=== PATIENT | female | born 1990 | race African-American/Black ===

== ENCOUNTER → 2018-01-13 | Outpatient (CLI) | payer OTHER | LOC: LAB 11:56 | PROVIDERS: ATTEND Obstetrics & Gynecology | DX: Z11.3 Encounter for screening for infections with a predominantly sexual mode of transmission (principal); N89.8 Other specified noninflammatory disorders of vagina | CPT/HCPCS: 36415; 86592; 86703; 86803; 87210; 87340; 87491; 87591 ==

== ENCOUNTER 2018-03-03 07:15 | Emergency (ER) | payer SELFPAY ==
[2018-03-03] MEDS ORDERED: NS(*) 0.9% 1000 ML BAG 1,000 ML IV ONE ×2 (07:26)
[2018-03-03] MEDS ORDERED: ONDANSETRON 4 MG/2 ML VIAL IVP ONE (07:30)
--- NOTE | 2018-03-03 07:38 | ER Report ---
History and Physical Time Seen By MD: 07:25 Hx. of Stated Complaint: DIARRHEA FOR A WEEK, VOMITING STARTED YESTERDAY. WORK REQUESTED SHE SEE A DOCTOR HPI/ROS CHIEF COMPLAINT: 27-year-old female comes with a complaint of one to one and half days of nausea vomiting and diarrhea mild right-sided abdominal discomfort patient denies any chest pain shortness of breath fever chills or additional complaints noted no recent travel or sick contacts no diarrhea changes HISTORY OF PRESENT ILLNESS: must have 4 elements REVIEW OF SYSTEMS: Respiratory: No cough, no dyspnea. Cardiovascular: No chest pain, no palpitations. Gastrointestinal: Vomiting diarrhea no abdominal pain Musculoskeletal: No back pain. Remainder of the 14 system rev: Yes Allergies: Coded Allergies: sulfamethoxazole (Unverified Allergy, Unknown, UNKNOWN, 03/03/18) trimethoprim (Unverified Allergy, Unknown, UNKNOWN, 03/03/18) Home Meds No Active Prescriptions or Reported Meds Reviewed Nurses Notes: Yes Old Medical Records Reviewed: Yes Smoking Status: Current: Every Day Smoker Exposure to Second Hand Smoke?: No Constitutional Vital Sign - Last 24 Hours 03/03/18 03/03/18 03/03/18 03/03/18 07:20 07:22 07:30 07:45 Temp 98.4 Pulse 72 66 60 Resp 16 B/P (MAP) 116/70 116/70 (85) 113/75 (88) 112/69 (83) Pulse Ox 100 96 97 O2 Delivery Room Air 03/03/18 03/03/18 03/03/18 03/03/18 07:50 08:00 08:05 08:20 Pulse 57 55 55 B/P (MAP) 103/58 (73) Pulse Ox 95 96 91 03/03/18 03/03/18 03/03/18 03/03/18 08:30 08:35 08:50 09:00 Pulse 52 51 B/P (MAP) 108/38 (61) ???/??? (4515) Pulse Ox 95 95 03/03/18 03/03/18 03/03/18 03/03/18 09:05 09:20 09:35 09:40 Pulse 56 61 57 52 Pulse Ox 95 95 98 91 03/03/18 03/03/18 03/03/18 03/03/18 09:55 10:00 10:05 10:20 Pulse 48 52 78 B/P (MAP) ???/??? (1665) Pulse Ox 97 89 95 03/03/18 03/03/18 03/03/18 03/03/18 10:30 10:35 10:50 11:30 Pulse 72 ??? B/P (MAP) ???/??? (1665) ???/??? (1665) Pulse Ox 88 03/03/18 03/03/18 03/03/18 03/03/18 11:50 11:55 12:00 12:05 Pulse ? 59 62 B/P (MAP) 129/46 (73) Pulse Ox 93 95 03/03/18 03/03/18 03/03/18 03/03/18 12:10 12:20 12:25 12:30 Pulse 56 61 66 71 B/P (MAP) 97/62 (74) 99/62 (74) 92/83 (86) Pulse Ox 95 95 94 96 03/03/18 03/03/18 03/03/18 12:35 12:40 12:45 Pulse 88 65 65 B/P (MAP) 100/65 (77) 102/61 (75) 101/64 (76) Pulse Ox 93 95 91 Intake and Output 03/03/18 03/03/18 03/04/18 15:00 23:00 07:00 Intake Total 2000 ml Balance 2000 ml Physical Exam General Appearance: The patient is alert, has no immediate need for airway protection and no current signs of toxicity. [ ] Eyes: Pupils equal and round no injection. Respiratory: Chest is non tender, lungs are clear to auscultation. Cardiac: regular rate and rhythm [ ] Gastrointestinal: Mild tenderness in the right upper quadrant otherwise unremarkable no rebound guarding masses normal bowel sounds Musculoskeletal: Neck: Neck is supple and non tender. Extremities have full range of motion and are non tender. Skin: No rashes or lesions. [ ] DIFFERENTIAL DIAGNOSIS: After history and physical exam differential diagnosis was considered for gallbladder cholecystitis cholangitis acute cholecystitis and gastroenteritis enteritis UTI Medical Decision Making Data Points Result Diagram: 03/03/18 0845 03/03/18 0735 Laboratory Hematology Test 03/03/18 07:20 03/03/18 07:35 03/03/18 08:45 Urine Color Yellow Urine Clarity Clear Urine pH 5.0 pH (4.8-9.5) Urine Specific [place] 1.014 Urine Protein Negative mg/dL (NEGATIVE) Urine Glucose (UA) Negative mg/dL (NEGATIVE) Urine Ketones Negative mg/dL (NEGATIVE) Urine Blood Negative (NEGATIVE) Urine Nitrite Negative (NEGATIVE) Urine Bilirubin Negative (NEGATIVE) Urine Urobilinogen Negative mg/dL (0.2-1.9) Urine Leukocyte Esterase Small (NEGATIVE) Urine RBC 2 /HPF (0-2/HPF) Urine WBC 3 /HPF (0-5/HPF) Urine Squamous Epithelial Cells Many /LPF (</=FEW) Urine Bacteria Negative /HPF (NONE-FEW) Urine Mucus None /HPF (NONE-FEW) Urine HCG, Qualitative Negative (NEGATIVE) Sodium Level 137 mmol/L (137-145) Potassium Level 4.1 mmol/L (3.5-5.0) Chloride Level 104 mmol/L (98-107) Carbon Dioxide Level 25 mmol/L (22-31) Blood Urea Nitrogen 10 mg/dl (7-18) Creatinine 0.80 mg/dl (0.52-1.04) Glomerular Filtration Rate Calc > 60.0 Random Glucose 99 mg/dl (75-110) Calcium Level 8.8 mg/dl (8.4-10.2) Total Bilirubin 0.3 mg/dl (0.2-1.3) Aspartate Amino Transf (AST/SGOT) 28 U/L (0-35) Alanine Aminotransferase (ALT/SGPT) 27 U/L (0-56) Alkaline Phosphatase 48 U/L (0-126) Total Protein 7.0 g/dl (6.3-8.2) Albumin 4.1 g/dl (3.5-5.0) Lipase 48 U/L (23-300) Red Blood Count 4.14 M/uL (4.17-5.56) Mean Corpuscular Volume 81.7 fL (80.0-96.0) Mean Corpuscular Hemoglobin 26.4 pg (26.0-33.0) Mean Corpuscular Hemoglobin Concent 32.4 g/dL (32.0-36.0) Red Cell Distribution Width 31.7 % (11.5-14.5) Mean Platelet Volume 8.5 fL (7.2-11.1) Neutrophils (%) (Auto) % (39.4-72.5) Lymphocytes (%) (Auto) % (17.6-49.6) Monocytes (%) (Auto) % (4.1-12.4) Eosinophils (%) (Auto) % (0.4-6.7) Basophils (%) (Auto) % (0.3-1.4) Nucleated RBC Relative Count (auto) /100WBC Neutrophils # (Auto) K/uL (2.0-7.4) Lymphocytes # (Auto) K/uL (1.3-3.6) Monocytes # (Auto) K/uL (0.3-1.0) Eosinophils # (Auto) K/uL (0.0-0.5) Basophils # (Auto) K/uL (0.0-0.1) Nucleated RBC Absolute Count (auto) K/uL Neutrophils % (Manual) 50 % (39.4-72.5) Lymphocytes % (Manual) 37 % (17.6-49.6) Atypical Lymphocytes % 8 % Monocytes % (Manual) 5 % (4.1-12.4) Eosinophils % (Manual) 0 % (0.4-6.7) Basophils % (Manual) 0 % (0.3-1.4) Poikilocytosis 1+ Anisocytosis 3+ Macrocytosis 2+ Target Cells 1+ Peripheral Blood Smear Yes Y/N Chemistry Test 03/03/18 07:20 03/03/18 07:35 03/03/18 08:45 Urine Color Yellow Urine Clarity Clear Urine pH 5.0 pH (4.8-9.5) Urine Specific [place] 1.014 Urine Protein Negative mg/dL (NEGATIVE) Urine Glucose (UA) Negative mg/dL (NEGATIVE) Urine Ketones Negative mg/dL (NEGATIVE) Urine Blood Negative (NEGATIVE) Urine Nitrite Negative (NEGATIVE) Urine Bilirubin Negative (NEGATIVE) Urine Urobilinogen Negative mg/dL (0.2-1.9) Urine Leukocyte Esterase Small (NEGATIVE) Urine RBC 2 /HPF (0-2/HPF) Urine WBC 3 /HPF (0-5/HPF) Urine Squamous Epithelial Cells Many /LPF (</=FEW) Urine Bacteria Negative /HPF (NONE-FEW) Urine Mucus None /HPF (NONE-FEW) Urine HCG, Qualitative Negative (NEGATIVE) Glomerular Filtration Rate Calc > 60.0 Calcium Level 8.8 mg/dl (8.4-10.2) Total Bilirubin 0.3 mg/dl (0.2-1.3) Aspartate Amino Transf (AST/SGOT) 28 U/L (0-35) Alanine Aminotransferase (ALT/SGPT) 27 U/L (0-56) Alkaline Phosphatase 48 U/L (0-126) Total Protein 7.0 g/dl (6.3-8.2) Albumin 4.1 g/dl (3.5-5.0) Lipase 48 U/L (23-300) White Blood Count 3.9 k/uL (4.5-11.0) Red Blood Count 4.14 M/uL (4.17-5.56) Hemoglobin 11.0 g/dL (12.0-16.0) Hematocrit 33.9 % (34.0-47.0) Mean Corpuscular Volume 81.7 fL (80.0-96.0) Mean Corpuscular Hemoglobin 26.4 pg (26.0-33.0) Mean Corpuscular Hemoglobin Concent 32.4 g/dL (32.0-36.0) Red Cell Distribution Width 31.7 % (11.5-14.5) Platelet Count 37 K/uL (150-450) Mean Platelet Volume 8.5 fL (7.2-11.1) Neutrophils (%) (Auto) % (39.4-72.5) Lymphocytes (%) (Auto) % (17.6-49.6) Monocytes (%) (Auto) % (4.1-12.4) Eosinophils (%) (Auto) % (0.4-6.7) Basophils (%) (Auto) % (0.3-1.4) Nucleated RBC Relative Count (auto) /100WBC Neutrophils # (Auto) K/uL (2.0-7.4) Lymphocytes # (Auto) K/uL (1.3-3.6) Monocytes # (Auto) K/uL (0.3-1.0) Eosinophils # (Auto) K/uL (0.0-0.5) Basophils # (Auto) K/uL (0.0-0.1) Nucleated RBC Absolute Count (auto) K/uL Neutrophils % (Manual) 50 % (39.4-72.5) Lymphocytes % (Manual) 37 % (17.6-49.6) Atypical Lymphocytes % 8 % Monocytes % (Manual) 5 % (4.1-12.4) Eosinophils % (Manual) 0 % (0.4-6.7) Basophils % (Manual) 0 % (0.3-1.4) Poikilocytosis 1+ Anisocytosis 3+ Macrocytosis 2+ Target Cells 1+ Peripheral Blood Smear Yes Y/N Urinalysis Test 03/03/18 07:20 Urine Color Yellow Urine Clarity Clear Urine pH 5.0 pH (4.8-9.5) Urine Specific [place] 1.014 Urine Protein Negative mg/dL (NEGATIVE) Urine Glucose (UA) Negative mg/dL (NEGATIVE) Urine Ketones Negative mg/dL (NEGATIVE) Urine Blood Negative (NEGATIVE) Urine Nitrite Negative (NEGATIVE) Urine Bilirubin Negative (NEGATIVE) Urine Urobilinogen Negative mg/dL (0.2-1.9) Urine Leukocyte Esterase Small (NEGATIVE) Urine RBC 2 /HPF (0-2/HPF) Urine WBC 3 /HPF (0-5/HPF) Urine Squamous Epithelial Cells Many /LPF (</=FEW) Urine Bacteria Negative /HPF (NONE-FEW) Urine Mucus None /HPF (NONE-FEW) Urine HCG, Qualitative Negative (NEGATIVE) ED Course/Re-evaluation ED Course ED clinical course medical decision making a 27-year-old female comes in with gastroenteritis type symptoms vomiting and diarrhea no acute abdominal pain some mild right upper quadrant discomfort baseline labs demonstrated a initial platelet count of 40 4 repeat verifying the lab showed a 37 2 units of platelets were reinfused I spoke to primary care will arrange hematology follow- up within 24 hours patient otherwise unremarkable rest of her workup was negative patient is a couple liters of fluid and will be discharge diagnosis thrombocytopenia Decision to Disposition Date: Mar 03, 2018 Decision to Disposition Time: 12:54 Depart Departure Latest Vital Signs Vital Signs Date Time Temp Pulse Resp B/P (MAP) Pulse Ox O2 Delivery O2 Flow Rate FiO2 03/03/18 12:45 65 101/64 (76) 91 03/03/18 07:20 98.4 16 Room Air Impression: Primary Impression: Thrombocytopenia Condition: Improved Disposition: HOME OR SELF-CARE Referrals: DANNI PORTER MD (PCP) SUMIT FALCON MD 1 Day New Scripts No Active Prescriptions or Reported Meds Patient Instructions: Immune Thrombocytopenia (DC) HARMONY PRICE MD Mar 03, 2018 07:38
[2018-03-03] MEDS ORDERED: KETOROLAC 30 MG/ML VIAL IVP ONE (07:40)
[2018-03-03 08:24] LABS: PLATELET COUNT, AUTOMATED 42 K/uL (150-450)
[2018-03-03 09:16] LABS: PLATELET COUNT, AUTOMATED 37 K/uL (150-450)
[2018-03-03 13:10] VITALS: BP 107/61
== END 2018-03-03 13:15 | disposition home or self-care (01) ==
LOC: ER 07:22
DX: D69.6 Thrombocytopenia, unspecified (principal)
CPT/HCPCS: 36415; 81001; 81025; 83690; 85025; 86850; 86900; 86901; 96361; 96374; 96375; 99284; J1885; J2405; J7030; P9035; 82040; 82247; 82310; 82374; 82435; 82565; 82947; 84075; 84132; 84155; 84295; 84450; 84460; 84520

== ENCOUNTER → 2018-03-04 | Outpatient (CLI) | payer OTHER ==
[2018-03-04 12:26] LABS: PLATELET COUNT, AUTOMATED 72 K/uL (150-450)
== END ==
LOC: LAB 12:07
PROVIDERS: ATTEND Internal Medicine
DX: D69.6 Thrombocytopenia, unspecified (principal); K52.9 Noninfective gastroenteritis and colitis, unspecified; R10.9 Unspecified abdominal pain; D64.9 Anemia, unspecified
CPT/HCPCS: 36415; 82040; 82247; 82310; 82374; 82435; 82565; 82607; 82728; 82746; 82947; 83540; 83550; 84075; 84132; 84155; 84295; 84443; 84450; 84460; 84520; 85007; 85027; 86038; 86147

== ENCOUNTER → 2018-04-06 | Outpatient (CLI) | payer SELFPAY ==
[~2018-04-06] MED LIST: CYAN100058 PO
--- NOTE | 2018-04-06 09:22 | RADIOLOGY IMAGING REPORT ---
FACILITY: [facility] PATIENT NAME: Kyleigh Stoner : 1990 MR: [id number] V: [id number] EXAM DATE: ORDERING PHYSICIAN: SUMIT FALCON TECHNOLOGIST: Location: [facility] Patient: Kyleigh Stoner : 1990 Visit/Account:[id number] Date of Sevice: 04/06/2018 EXAMINATION: Abdominal ultrasound complete HISTORY: Abdomen pain x3 months, anemia, thrombocytopenia COMPARISON: None. FINDINGS: Gallbladder: No stones, wall thickening, pericholecystic fluid or sonographic Hoover sign. Liver: Liver is enlarged measuring 20 cm in length Common duct: Normal measuring 4.2 mm. Pancreas: Partially obscured by bowel gas although the visualized portion is unremarkable Spleen: Normal in size and echogenicity measuring 9.6 cm in length. Kidneys: Kidneys appear unremarkable, the right measures 11.4 cm in length, and the left 12 cm. No hydronephrosis. Upper abdominal aorta and IVC: Negative. Ascites: None. IMPRESSION: Hepatomegaly otherwise unremarkable abdomen ultrasound Report Dictated By: Adriana Hendricks MD at 04/06/2018 9:16 AM Report E-Signed By: Adriana Hendricks MD at 04/06/2018 9:18 AM WSN:ATIF
== END ==
LOC: US 01:13
PROVIDERS: ATTEND Internal Medicine
DX: R16.0 Hepatomegaly, not elsewhere classified (principal)
CPT/HCPCS: 76700

== ENCOUNTER → 2018-04-22 | Outpatient (CLI) | payer SELFPAY ==
[~2018-04-22] MED LIST changes: +CHOL200038 PO
[2018-04-22 10:11] LABS: PLATELET COUNT, AUTOMATED 40 K/uL (150-450)
== END ==
LOC: LAB 09:09
PROVIDERS: ATTEND Internal Medicine
DX: D69.6 Thrombocytopenia, unspecified (principal); D64.9 Anemia, unspecified; R53.83 Other fatigue; R60.9 Edema, unspecified
CPT/HCPCS: 36415; 81001; 82040; 82247; 82306; 82310; 82374; 82435; 82565; 82607; 82728; 82746; 82947; 83540; 83550; 84075; 84132; 84155; 84295; 84443; 84450; 84460; 84520; 85025

== ENCOUNTER 2018-06-02 14:30 | Outpatient (RCR) | payer SELFPAY ==
[2018-05-27 15:07] VITALS: BP 114/77
[2018-05-27 16:49] LABS: PLATELET COUNT, AUTOMATED 48 K/uL (150-450)
--- NOTE | 2018-05-28 20:45 | ONCOLOGY CONSULTATION ---
EVENT DATE: May 27, 2018 REFERRING PHYSICIAN Matty Mckenzie MD REASON FOR CONSULTATION Evaluation and management of thrombocytopenia. HEMATOLOGY HISTORY Patient is a 27-year-old -[place]ag[place] female who moved to the area recently, and the patient saw Dr. Mckenzie in his office. Patient was found to have a low platelet count. On the February, her platelet count was 72,000, and currently on April 22, 2018, her white count was 4.7, hemoglobin 12.7, hematocrit 39%, and the platelet count 40,000. She had a B12 level of 584 and a folate level of 14.1. Patient was referred for further evaluation and management. PAST MEDICAL HISTORY 1. Anxiety/depression. 2. Bipolar disorder. PAST SURGICAL HISTORY Insignificant. FAMILY HISTORY Mother had a blood disorder, but she does not know exactly the type. SOCIAL HISTORY Patient is single with one son. She works for the [employer] [address]. She smokes one pack a day for about 12 years. She drinks occasionally socially. She used marijuana. CURRENT MEDICATIONS 1. Vitamin D3, 2000 units daily. 2. Vitamin B12, 1000 mcg capsule daily. ALLERGIES SULFA which causes hives. REVIEW OF SYSTEMS CONSTITUTIONAL: No appetite or weight change. No fever, chills, or sweating. No recent infection. HEENT: Ears: No tinnitus or hearing problem. Nose: No nasal discharge or epistaxis. Throat: No sore throat or mouth ulcers. Eyes: No diplopia or visual changes. RESPIRATORY: No shortness of breath. She has cough. No hemoptysis. CARDIOVASCULAR: No chest pain, orthopnea, or paroxysmal nocturnal dyspnea (PND). No edema. No palpitations. GASTROINTESTINAL: No nausea or vomiting. No diarrhea or constipation. No change in bowel movements. No heartburn or swallowing difficulties. No abdominal pain. No jaundice. No hematemesis, melena, or rectal bleeding. GENITOURINARY: No hematuria or dysuria. MUSCULOSKELETAL: She has pain in the knees, back, and stomach. NEUROLOGICAL: No tingling or numbness in the hands or feet. No headaches or convulsions. HEMATOLOGIC/LYMPHATIC: No bleeding. She bruises easily. She is weak, tired, and fatigued. No enlarged lymph nodes. SKIN: No skin rash or lumps. PSYCHIATRIC: No anxiety or depression. PHYSICAL EXAMINATION GENERAL: Looks stable. Well developed, well nourished, and in no acute distress. VITAL SIGNS: Blood pressure 114/77, pulse 79 per minute, respirations 16 per minute, temperature 99.7, pulse ox 94% on room air. HEENT: Head: Atraumatic. No sinus tenderness to palpation. Eyes: No icterus or conjunctivitis. Mouth and Throat: No oral thrush or mucositis. NECK: Supple. No cervical or supraclavicular lymphadenopathy. LUNGS: Clear to auscultation and percussion bilaterally. HEART: Regular rate and rhythm. No gallops, murmurs, clicks, or rubs. ABDOMEN: Soft and lax. No tenderness. No hepatosplenomegaly. No masses. EXTREMITIES: No cyanosis, clubbing, or edema. LYMPHATICS: No peripheral lymphadenopathy. NEUROLOGICAL: Conscious, alert, and oriented times three. No focal motor or sensory deficits. PSYCHIATRIC: Mood and affect appear normal. SKIN: No skin rash, bruise, or purpuric eruption. ASSESSMENT Thrombocytopenia. Could be due to nutrition deficiency like vitamin B12 or folate acid deficiency, but autoimmune thrombocytopenia is common in her age group, like idiopathic thrombocytopenia. Bone marrow disease or infiltration is unlikely. I am planning to check her CBC, reticulocyte count, iron studies with ferritin, B12, folate, methylmalonic acid assay, and red cell folate. I will also check her platelet-associated antibodies. If those tests would come back negative, as long as her platelet count in a safe level, we will continue to monitor, but if she drops her platelet count below 20,000, I may consider bone marrow biopsy at that time for further evaluation. It seems that the patient could have an underlying idiopathic thrombocytopenia causing her low platelet count. PLAN 1. CBC and retic count. 2. B12, methylmalonic acid assay. 3. Folate and red cell folate. 4. Iron studies with ferritin. 5. Platelet-associated antibodies, direct and indirect. 6. Patient to return after the above for further evaluation and management. 7. Patient to contact us for any new concerns or complaints. ALLYSON
[2018-06-02 14:49] VITALS: BP 116/76
[2018-06-02 15:19] LABS: PLATELET COUNT, AUTOMATED 47 K/uL (150-450)
--- NOTE | 2018-06-02 17:02 | ONCOLOGY FOLLOW UP NOTE ---
EVENT DATE: June 02, 2018 CHIEF COMPLAINT Followup for thrombocytopenia. HISTORY OF PRESENT ILLNESS Patient is a 27-year-old female who presented in February 2018 with a platelet count of 42,000. She recently completed workup per Dr. Rivera and is here to discuss the results. Overall, she is feeling well. She denies any bleeding. She does have some bruising, but works in the kitchen at the [employer], so occasionally notes bruising. She did cut her finger, but did not find this bled excessively. She relates she has heavy periods. She is on a B12 supplement at this time. HEMATOLOGY HISTORY Patient is a 27-year-old -Citizen Of [place] female first noted to have thrombocytopenia at her son's in 2009. She presented in February 2018 with bruising; platelet count was 32,000. She has not noted any significant bleeding or bruising since that time, but continues with thrombocytopenia. Evaluation including iron studies, B12, folate, and RBC folate hemolysis were all within normal limits. Platelet associated antibody IgG was strongly positive. B12 has improved from previous 258 in February on supplementation. MEDICAL HISTORY 1. Anxiety/depression. 2. Bipolar disorder. SURGICAL HISTORY Noncontributory. FAMILY HISTORY Mother had a blood disorder of unknown type. She also had hypertension and coronary artery disease. SOCIAL HISTORY Patient is single. She has an 8-year-old son. She works for the [employer] and is going to classes for childcare development. She smokes one pack a day for about 12 years. She drinks alcohol socially. She uses marijuana. MEDICATIONS 1. Vitamin D3 2000 International Units daily. 2. Vitamin B12 1000 mcg daily. ALLERGIES SULFA which causes hives. REVIEW OF SYSTEMS A 12-point review of systems is performed and is negative except as stated above. PHYSICAL EXAMINATION VITAL SIGNS: Weight 110.6 kg. BP 116/76, P 94, R 16, temp 98.2, O2 sat 93%. GENERAL: Patient is a well-developed, well-nourished female in no acute distress. HEAD: Normocephalic, atraumatic. EYES: Sclerae anicteric. MOUTH: Moist mucous membranes. NECK: Supple. No adenopathy. LUNGS: Clear bilaterally. CARDIOVASCULAR: Heart rate regular with mild tachycardia. EXTREMITIES: Trace pretibial edema bilaterally. NEUROLOGIC: Nonfocal. SKIN: Minimal bruising noted on forearms. LABORATORY CBC today reveals a WBC of 6.5, hemoglobin 11.5, hematocrit 35.0, platelets 47,000. IMPRESSION AND PLAN The patient is a 27-year-old female with: 1. Thrombocytopenia. On further review, she states this was first noted at her son's in 2009. She was recently found to be deficient in B12 and started on a supplement for this. Other workup including iron studies with ferritin, B12, folate, and red cell folate was unremarkable. Platelet associated antibody IgG was strongly positive. She has been thrombocytopenic, but stable over the past four months. Dr. Rivera feels that this is likely ITP given her age and lab workup. Consideration for treatment would be given if platelets were < 20,000. I reviewed thrombocytopenia precautions. She will notify us if she develops any spontaneous bleeding or excessive bruising. Continue B12 supplement. 2. Anemia, mild. She does have very heavy periods. She plans to discuss the possibility of control pills with her physician. 3. Follow up in one month for continued care. CBC will be drawn at that time. CC: SUMIT FALCON MD MTDD
== END 2018-08-24 ==
LOC: ONC 14:30
PROVIDERS: ATTEND Internal Medicine Hematology
DX: D69.6 Thrombocytopenia, unspecified (principal); D64.9 Anemia, unspecified; Z72.0 Tobacco use; F41.8 Other specified anxiety disorders; F31.9 Bipolar disorder, unspecified
CPT/HCPCS: 36415; 82607; 82728; 82746; 82747; 83540; 83550; 83921; 85025; 85045; 86022; 86023; 99202; 99212